=== PATIENT | female | born 1945 | race Hispanic/Latino ===

== ENCOUNTER 2016-06-24 12:56 | Emergency (ER) | payer MEDICARE, BC ==
[2016-06-24 13:05] VITALS: BP 143/67; PULSE 82; RESP 20; TEMP 96.4; O2SAT 95
[2016-06-24] MEDS ORDERED: Sodium Chloride 0.9% 500 ML IV STA (13:20)
--- NOTE | 2016-06-24 13:27 | ED PDOC ---
HPI: General Adult Time Seen by Provider: 06/24/16 13:15 Chief Complaint (Nursing): Dizziness/Lightheaded Chief Complaint (Provider): Dizziness/Lightheaded History Per: Patient History/Exam Limitations: no limitations Onset/Duration Of Symptoms: Days (x2 days) Additional Complaint(s): 70 y/o female with a past medical history of neuropathy, hypercholesterolemia and hypertension who presents to the emergency department with a complaint of experiencing on and off episodes of dizziness (room spinning) whenever she bends or with movement since yesterday night before she went to bed, 2016. Goes away on its own. Patient states she took 2 Aleve pills last night for a tear on her shoulder for the relief of pain, which she believed was going to resolve her dizziness but it did not. Denies shortness of breath, vomiting, nausea, diarrhea, numbness, chest pain, cough, neck pain, or problems with urination. No weakeness, headaches. PMD: Dr. Сергей Aguirre MD Past Medical History Reviewed: Historical Data, Nursing Documentation, Vital Signs Vital Signs: Last Vital Signs Temp 96.4 F L 06/24/16 12:57 Pulse 82 06/24/16 12:57 Resp 20 06/24/16 12:57 BP 143/67 06/24/16 12:57 Pulse Ox 95 06/24/16 14:04 - Medical History PMH: HTN, Hypercholesterolemia - Surgical History Surgical History: Hernia Repair Other surgeries: Mastectomy (left) - Family History Family History: States: Unknown Family Hx - Home Medications Home Medications: Ambulatory Orders Medication Instructions Recorded Atorvastatin [Lipitor] 10 mg PO DAILY 06/24/16 Calcium Carbonate/Vitamin D3 800 mg PO DAILY 06/24/16 [Calcium 600+D Softgel] Gabapentin [Neurontin] 600 mg PO BID 06/24/16 Ibandronate [Boniva] 150 mg IM Q30D 06/24/16 - Allergies Allergies/Adverse Reactions: Allergies Allergy/AdvReac Type Severity Reaction Status Date / Time No Known Allergies Allergy Verified 06/24/16 12:57 Review of Systems ROS Statement: Except As Marked, All Systems Reviewed And Found Negative Cardiovascular: Negative for: Chest Pain Respiratory: Negative for: Cough, Shortness of Breath Gastrointestinal: Negative for: Nausea, Vomiting, Diarrhea Genitourinary Female: Negative for: Dysuria, Frequency, Incontinence, Hematuria Musculoskeletal: Negative for: Neck Pain Neurological: Positive for: Dizziness (Room spinning), Other (Tingling (fingers b/l chronically due to nueropathy)). Negative for: Numbness Physical Exam - Reviewed Nursing Documentation Reviewed: Yes Vital Signs Reviewed: Yes - Physical Exam Appears: Positive for: Non-toxic, No Acute Distress Head Exam: Positive for: ATRAUMATIC, NORMOCEPHALIC Skin: Positive for: Normal Color, Warm, Dry Eye Exam: Positive for: Normal appearance, EOMI, PERRL ENT: Positive for: Normal ENT Inspection Neck: Positive for: Normal, Painless ROM, Supple Cardiovascular/Chest: Positive for: Regular Rate, Rhythm. Negative for: Murmur Respiratory: Positive for: Normal Breath Sounds. Negative for: Accessory Muscle Use, Respiratory Distress Gastrointestinal/Abdominal: Positive for: Normal Exam, Bowel Sounds, Soft. Negative for: Tenderness Back: Positive for: Normal Inspection. Negative for: L CVA Tenderness, R CVA Tenderness Extremity: Positive for: Normal ROM. Negative for: Tenderness, Pedal Edema, Swelling Neurologic/Psych: Positive for: Alert, aquatic habitat biologist II-XII, Oriented. Negative for: Motor/Sensory Deficits, Cerebellar Tests, Aphasia, Facial Droop - Laboratory Results Result Diagrams: 06/24/16 14:01 06/24/16 14:01 Interpretation Of Abn Labs: bun 23 - ECG ECG: Positive for: Interpreted By Me, Viewed By Me ECG Rhythm: Positive for: Normal QRS, Normal ST Segment, Sinus Rhythm O2 Sat by Pulse Oximetry: 95 (RA) Pulse Ox Interpretation: Normal - CT Scan/US head Other Rad Studies (CT/US): Read By Radiologist Other Rad Interpretation: no acute - Progress ED Course And Treament: 1519: Feels much better. AAOx3. No dizziness. Tolerated PO. Ambulating and moving with no issues. Medical Decision Making Medical Decision Making: Time: 13:15 Initial impression: Dizziness Initial plan: --Head w/o contrast (CT) --Electrocardiogram stat --COMP Metabolic Panel --Troponin I Stat --EKG-ED (EDNURTX) STat --CBC w/ differential --Antivert 25 mg PO --Sodium Chloride 500 ml IV 100 mls/hr --Revaluation --Blood Sugar: 122 Time: 13:48 --Head CT FINDINGS: HEMORRHAGE: No intracranial hemorrhage. BRAIN: No mass effect or edema. No significant atrophy. Mild periventricular chronic white matter ischemic change. VENTRICLES: Unremarkable. No hydrocephalus. CALVARIUM: Unremarkable. PARANASAL SINUSES: Unremarkable as visualized. No significant inflammatory changes. MASTOID AIR CELLS: Unremarkable as visualized. No inflammatory changes. OTHER FINDINGS: None. IMPRESSION: No intracranial mass, hemorrhage or evidence acute infarct. Mild chronic microvascular white matter ischemic change. Scribe Attestation: Documented by Charlotte De Jesus, acting as a scribe for Ricki Rey MD. Provider Scribe Attestation: All medical record entries made by the Scribe were at my direction and personally dictated by me. I have reviewed the chart and agree that the record accurately reflects my personal performance of the history, physical exam, medical decision making, and the department course for this patient. I have also personally directed, reviewed, and agree with the discharge instructions and disposition. Disposition - Clinical Impression Clinical Impression: Dizziness - Patient ED Disposition Is Patient to be Admitted: No Counseled Patient/Family Regarding: Studies Performed, Diagnosis, Need For Followup - Disposition Referrals: [facility] [Outside] - 06/26/16 Disposition: Routine/Home Disposition Time: 15:20 Condition: STABLE Additional Instructions: Return if not better in 3 days. Instructions: Dizziness (ED)
--- NOTE | 2016-06-24 13:49 | CT ---
PROCEDURE: CT HEAD WITHOUT CONTRAST. HISTORY: headache COMPARISON: None available. TECHNIQUE: Axial computed tomography images were obtained through the head/brain without intravenous contrast. Radiation dose: Total exam DLP = 861.53 mGy-cm. This CT exam was performed using one or more of the following dose reduction techniques: Automated exposure control, adjustment of the mA and/or kV according to patient size, and/or use of iterative reconstruction technique. FINDINGS: HEMORRHAGE: No intracranial hemorrhage. BRAIN: No mass effect or edema. No significant atrophy. Mild periventricular chronic white matter ischemic change. VENTRICLES: Unremarkable. No hydrocephalus. CALVARIUM: Unremarkable. PARANASAL SINUSES: Unremarkable as visualized. No significant inflammatory changes. MASTOID AIR CELLS: Unremarkable as visualized. No inflammatory changes. OTHER FINDINGS: None. IMPRESSION: No intracranial mass, hemorrhage or evidence acute infarct. Mild chronic microvascular white matter ischemic change.
[2016-06-24 14:16] LABS: ALB/GLOB RATIO 1.3 (1.0-2.1); ALKALINE PHOSPHATASE 85 U/L (38-126); ALT/SGPT 21 U/L (9-52); AST/SGOT 24 U/L (14-36); BILIRUBIN,TOTAL 0.7 mg/dl (0.2-1.3); BLOOD UREA NITROGEN 23 mg/dl (7-17); CALCIUM 9.5 mg/dL (8.4-10.2); CARBON DIOXIDE 30 mmol/L (22-30); CHLORIDE 104 mmol/L (98-107); GFR AFRICAN-AMERICAN > 60; GLUCOSE,RANDOM 97 mg/dL (65-105); SODIUM 145 mmol/l (132-148)
[2016-06-24 14:21] LABS: BASO # 0.1 K/uL (0.0-0.2); BASO % 1.2 % (0.0-2.0); EOS # 0.3 K/uL (0.0-0.7); EOS % 4.5 % (0.0-4.0); HEMATOCRIT 44.4 % (34.0-47.0); LYMPH # 1.9 K/uL (1.0-4.3); LYMPH % 30.2 % (20.0-40.0); MEAN CELL VOLUME 95.8 fl (81.0-99.0); MEAN CORPUSCULAR HEMOGLOBIN 31.8 pg (27.0-31.0); MEAN CORPUSCULAR HGB CONC 33.2 g/dL (33.0-37.0); MEAN PLATELET VOLUME 7.9 fl (7.2-11.7); MONO # 0.6 K/uL (0.0-0.8); NEUT # 3.4 K/uL (1.8-7.0); NEUT % 55.1 % (50.0-75.0); NRBC % 0.1 % (0.0-0.0); RED CELL DISTRIBUTION WIDTH 13.9 % (11.5-14.5); WHITE BLOOD COUNT 6.2 K/uL (4.8-10.8)
--- NOTE | 2016-06-25 09:05 | CARD ---
APPROVED REPORT EKG Measurement Heart [id number] <Conclusion> Sinus bradycardia Otherwise normal ECG
== END 2016-06-24 15:37 | disposition home or self-care (01) ==
LOC: H.ER 12:56
DX: R42 Dizziness and giddiness (principal); E78.00 Pure hypercholesterolemia, unspecified; I10 Essential (primary) hypertension; Z90.12 Acquired absence of left breast and nipple
CPT/HCPCS: 70450; 80053; 82948; 84484; 85025; 93005; 99284; J7040

== ENCOUNTER 2017-06-19 06:44 | Inpatient (IN) | payer MEDICARE, BC ==
[2017-06-15 12:14] VITALS: BMI 32.2
[2017-06-19] MEDS ORDERED: Lidocaine 4% (Laryng-O-Jet) Kit MM ONE (08:49)
[2017-06-19] MEDS ORDERED: Midazolam 2 MG/2 ML VIAL ONE ×2 (08:49→10:36)
[2017-06-19] MEDS ORDERED: Propofol 10 mg/ml Inj (20 ML) ONE ×2 (08:49→10:36)
[2017-06-19] MEDS ORDERED: Rocuronium 10 mg/ml (5 ml) ONE ×2 (08:49→10:36)
[2017-06-19] MEDS ORDERED: Lidocaine Hydrochloride 1% 0 ML ONE (09:39)
[2017-06-19] MEDS ORDERED: Bupivacaine 0.5% Inj(30mL) ONE (09:39)
[2017-06-19] MEDS ORDERED: Thrombin Topical 5,000 Int Units Spray Kit ONE (09:40)
[2017-06-19] MEDS ORDERED: Absorbable Gelatin Sponge Size 100 ONE (09:40)
[2017-06-19] MEDS ORDERED: Bacitracin Ointment 30 GM TUBE ONE (09:40)
[2017-06-19] MEDS ORDERED: EPINEPHrine 1 mg/ml (1:1000) Inj ONE (09:40)
[2017-06-19 09:44] LABS: BASO # 0.1 K/uL (0.0-0.2); BASO % 1.2 % (0.0-2.0); EOS # 0.2 K/uL (0.0-0.7); EOS % 2.4 % (0.0-4.0); HEMOGLOBIN 16.1 g/dL (12.0-16.0); LYMPH # 1.9 K/uL (1.0-4.3); LYMPH % 26.1 % (20.0-40.0); MEAN CELL VOLUME 93.2 fl (81.0-99.0); MEAN CORPUSCULAR HEMOGLOBIN 31.5 pg (27.0-31.0); MEAN CORPUSCULAR HGB CONC 33.8 g/dL (33.0-37.0); MEAN PLATELET VOLUME 8.4 fl (7.2-11.7); MONO # 0.5 K/uL (0.0-0.8); MONO % 6.3 % (0.0-10.0); NEUT # 4.8 K/uL (1.8-7.0); NRBC % 0.1 % (0.0-0.0); RBC 5.1 Mil/uL (3.80-5.20); RED CELL DISTRIBUTION WIDTH 13.7 % (11.5-14.5); WHITE BLOOD COUNT 7.4 K/uL (4.8-10.8)
[2017-06-19] MEDS ORDERED: Succinylcholine 200 mg/10 ml Inj IV ONE (10:36)
[2017-06-19] MEDS ORDERED: Lactated Ringer's 1,000 ML IV ONE ×2 (10:57→12:00)
[2017-06-19] MEDS ORDERED: Morphine 1 mg/ml preservative-free Inj(Duramorph) ONE (12:04)
[2017-06-19] MEDS ORDERED: Sodium Chloride 0.9% Inj (10mL) IV ONE (12:10)
[2017-06-19] MEDS ORDERED: Bupivacaine 0.5% 50 ML IJ ONE (12:10)
[2017-06-19] MEDS ORDERED: EPINEPHrine 1 mg/ml (1:1000) Inj IV ONE (12:10)
[2017-06-19] MEDS ORDERED: Morphine 1 mg/ml preservative-free Inj(Duramorph) IV ONE (12:10)
[2017-06-19] MEDS: Morphine 4 MG/ML VIAL IVP PRN ×2 (13:40→13:55)
--- NOTE | 2017-06-19 13:42 | PCM.SURG1 ---
Surgeon's Initial Post Op Note - Surgeon's Notes Surgeon: Renteta Sunshine MD Housing Case Manager: Preston Hoskins PA-C; Leighann Montana Type of Anesthesia: General Endo Pre-Operative Diagnosis: Left knee Osteoarthritis Operative Findings: see op report Post-Operative Diagnosis: same as pre-op dx Operation Performed: L TKR Specimen/Specimens Removed: left knee bone and soft tissue Estimated Blood Loss: EBL {In ML}: 100 Date of Surgery/Procedure: 06/19/17 Time of Surgery/Procedure: 12:00
[2017-06-19] MEDS ORDERED: Morphine 4 MG/ML VIAL ONE ×2 (13:43→13:59)
--- NOTE | 2017-06-19 14:34 | RAD ---
PROCEDURE: Left Knee Radiographs. HISTORY: Pain. COMPARISON: 05/07/2017. FINDINGS: BONES: There is no acute fracture or bone destruction. Bone alignment is normal. JOINTS: Status post total cemented knee arthroplasty. No acute complications. JOINT EFFUSION: There is a small suprapatellar joint effusion OTHER FINDINGS: Soft tissue emphysema in the periarticular soft tissues and anterior skin guille. IMPRESSION: Status post total cemented right knee arthroplasty, no acute complications.
--- NOTE | 2017-06-19 16:05 | CP.PCM.HP ---
<Nain Dove - Last Filed: 06/19/17 16:07> History of Present Illness - History of Present Illness History of Present Illness: CC: Left total knee replacement HPI: 71 y/o woman w/ pmh of HTN, neuropathy, and HLD presents for left total knee replacement. The patient has no complaints other than some mild pain s/p surgery. The patient denies headaches, chest pain, SOB, abdominal pain, nausea , vomiting, diarrhea, or fever PMD: Dr. Vinson PMH: HTN, HLD, neuropathy meds: see med list PSH: hiatal hernia repair 2007, left mastectomy 2002 Fam: denies SOC: denies smoking, alcohol, and drugs ROS: 12 points assessed and negative unless otherwise reported in HPI Present on Admission - Present on Admission Any Indicators Present on Admission: No History of DVT/PE: No History of Uncontrolled Diabetes: No Urinary Catheter: No Decubitus Ulcer Present: No Review of Systems - Review of Systems All systems: reviewed and no additional remarkable complaints except - Constitutional Constitutional: absent: Chills, Fever - EENT Eyes: absent: Change in Vision - Cardiovascular Cardiovascular: absent: Chest Pain - Respiratory Respiratory: absent: Dyspnea - Gastrointestinal Gastrointestinal: absent: Abdominal Pain, Diarrhea, Nausea, Vomiting - Genitourinary Genitourinary: absent: Dysuria - Integumentary Integumentary: absent: Rash Past Patient History - Past Medical History & Family History Past Medical History?: Yes - Past Social History Smoking Status: Never Smoked - CARDIAC Hx Cardiac Disorders: Yes Hx Hypercholesterolemia: Yes Hx Hypertension: Yes - PULMONARY Hx Respiratory Disorders: No - NEUROLOGICAL Hx Neurological Disorder: No - HEENT Hx HEENT Problems: Yes Other/Comment: high pressure - RENAL Hx Chronic Kidney Disease: No - ENDOCRINE/METABOLIC Hx Endocrine Disorders: No - HEMATOLOGICAL/ONCOLOGICAL Hx Blood Disorders: Yes Hx Cancer: Yes - INTEGUMENTARY Hx Dermatological Problems: No - MUSCULOSKELETAL/RHEUMATOLOGICAL Hx Musculoskeletal Disorders: Yes Hx Arthritis: Yes (spine,knees,neck) - GASTROINTESTINAL Hx Gastrointestinal Disorders: No - GENITOURINARY/GYNECOLOGICAL Hx Genitourinary Disorders: No - PSYCHIATRIC Hx Psychophysiologic Disorder: No Hx Substance Use: No - SURGICAL HISTORY Hx Surgeries: Yes Hx Appendectomy: Yes Hx Herniorrhaphy: Yes (hiatus) Hx Mastectomy: Yes (left) Other/Comment: epidural - ANESTHESIA Hx Anesthesia: Yes Hx Anesthesia Reactions: No Hx Malignant Hyperthermia: No Has any member of the family had a problem w/ anesthesia?: No Meds Allergies/Adverse Reactions: Allergies Allergy/AdvReac Type Severity Reaction Status Date / Time No Known Allergies Allergy Verified 06/19/17 11:53 Physical Exam - Constitutional Appears: No Acute Distress - Head Exam Head Exam: ATRAUMATIC, NORMAL INSPECTION, NORMOCEPHALIC - Eye Exam Eye Exam: Normal appearance - ENT Exam ENT Exam: Mucous Membranes Moist - Neck Exam Neck exam: Positive for: Full Rom. Negative for: Tenderness - Respiratory Exam Respiratory Exam: Clear to Auscultation Bilateral. absent: Accessory Muscle Use , Decreased Breath Sounds, Rales, Rhonchi, Wheezes, Respiratory Distress - Cardiovascular Exam Cardiovascular Exam: REGULAR RHYTHM. absent: Tachycardia - GI/Abdominal Exam GI & Abdominal Exam: Normal Bowel Sounds, Soft. absent: Distended, Tenderness - Extremities Exam Extremities exam: Negative for: calf tenderness, pedal edema, tenderness Additional comments: s/p total left knee replacement, dressed c/d/i - Neurological Exam Neurological exam: Alert, Oriented x3 - Skin Skin Exam: Dry, Intact, Normal Color, Warm Results - Vital Signs Recent Vital Signs: Last Vital Signs Temp 98.6 F 06/19/17 15:40 Pulse 57 L 06/19/17 15:40 Resp 18 06/19/17 15:40 BP 136/71 06/19/17 15:40 Pulse Ox 99 06/19/17 15:40 - Labs Result Diagrams: 06/19/17 09:00 Labs: Laboratory Results - last 24 hr 06/19/17 06/19/17 06/19/17 09:00 09:00 09:30 WBC 7.4 RBC 5.10 Hgb 16.1 H Hct 47.5 H MCV 93.2 D MCH 31.5 H MCHC 33.8 RDW 13.7 Plt Count 196 MPV 8.4 Neut % (Auto) 64.0 Lymph % (Auto) 26.1 [place] % (Auto) 6.3 Eos % (Auto) 2.4 Baso % (Auto) 1.2 Neut # (Auto) 4.8 Lymph # (Auto) 1.9 [place] # (Auto) 0.5 Eos # (Auto) 0.2 Baso # (Auto) 0.1 Blood Type A POSITIVE Blood Type Confirm A POSITIVE Antibody Screen Negative Crossmatch See Detail BBK History Checked No verified bt Assessment & Plan (1) Status post left knee replacement Status: Acute - Assessment and Plan (Free Text) Plan: c/w present management pain management - oxycontin 10 mg PO Q12h - percocet 1 tab PO Q4h prn - toradol 15 mg IM Q8h - Gabapentin 600 mg PO TID <Tom Vinson - Last Filed: 06/21/17 21:26> Results - Vital Signs Recent Vital Signs: Last Vital Signs Temp 99.6 F 06/21/17 09:05 Pulse 76 06/21/17 09:15 Resp 20 06/21/17 09:05 BP 108/61 06/21/17 09:15 Pulse Ox 95 06/21/17 09:15 - Labs Result Diagrams: 06/21/17 05:30 06/21/17 05:30 Labs: Laboratory Results - last 24 hr 06/21/17 06/21/17 05:30 05:30 WBC 9.2 RBC 4.20 Hgb 13.1 Hct 39.5 MCV 94.0 MCH 31.3 H MCHC 33.3 RDW 13.9 Plt Count 143 MPV 8.6 Neut % (Auto) 70.2 Lymph % (Auto) 16.0 L [place] % (Auto) 6.8 Eos % (Auto) 6.6 H Baso % (Auto) 0.4 Neut # (Auto) 6.5 Lymph # (Auto) 1.5 [place] # (Auto) 0.6 Eos # (Auto) 0.6 Baso # (Auto) 0.0 Sodium 138 Potassium 4.1 Chloride 96 L Carbon Dioxide 31 H Anion Gap 15 BUN 13 Creatinine 0.9 Est GFR ( Amer) > 60 Est GFR (Non-Af Amer) > 60 Random Glucose 117 H Calcium 9.3 Assessment & Plan - Assessment and Plan (Free Text) Plan: I was present during evaluation and discussed with Dr Dove re plans of care and tx. Tom Vinson M.D.
[2017-06-19] MEDS ORDERED: CYANOCOBALAMIN NS SCH (16:15)
[2017-06-19] MEDS ORDERED: ceFAZolin 1 GM in Sodium Chloride 0.9% 100 ML IVPB ONE (19:00)
[2017-06-19] MEDS: oxyCODONE 10 mg ER Tab (oxyCONTIN) PO SCH (21:17)
[2017-06-19] MEDS: Oxycodone/Acetaminophen 5/325 mg Tab PO PRN (22:38)
[2017-06-20] MEDS ORDERED: ceFAZolin 1 GM in Sodium Chloride 0.9% 100 ML IVPB ONE (03:00)
[2017-06-20 07:06] LABS: BLOOD UREA NITROGEN 15 mg/dl (7-17); CALCIUM 8.9 mg/dL (8.4-10.2); GFR AFRICAN-AMERICAN > 60; GFR NON-AFRICAN AMERICAN > 60
[2017-06-20 07:07] LABS: BASO % 0.3 % (0.0-2.0); EOS # 0.4 K/uL (0.0-0.7); EOS % 4.4 % (0.0-4.0); HEMOGLOBIN 13.4 g/dL (12.0-16.0); LYMPH # 1.7 K/uL (1.0-4.3); LYMPH % 20.2 % (20.0-40.0); MEAN CELL VOLUME 94.2 fl (81.0-99.0); MEAN PLATELET VOLUME 8.3 fl (7.2-11.7); MONO # 0.7 K/uL (0.0-0.8); MONO % 8.5 % (0.0-10.0); NEUT # 5.5 K/uL (1.8-7.0); NEUT % 66.6 % (50.0-75.0); NRBC % 0.2 % (0.0-0.0); RBC 4.17 Mil/uL (3.80-5.20); WHITE BLOOD COUNT 8.2 K/uL (4.8-10.8)
--- NOTE | 2017-06-20 08:30 | OP ---
PROCEDURE DATE: 06/19/2017 ATTENDING PHYSICIAN: Renetta Sunshine MD WET MACHINE CUTTER: Preston Hoskins PA-C PREOPERATIVE DIAGNOSIS: Left knee osteoarthritis. POSTOPERATIVE DIAGNOSIS: Left knee osteoarthritis. PROCEDURE: Left total knee replacement. IMPLANTS SIZE: [employer] size 2 tibial baseplate, size 2 femur, 11 mm polyethylene insert, and 29 mm patella. ANESTHESIA TYPE: General. ESTIMATED BLOOD LOSS: 100 mL. COMPLICATIONS: None. HISTORY: The patient with prolonged history of left knee pain progressively getting worse despite extensive conservative management, which included activity modification, injections, anti-inflammatory modification and physical therapy. X-rays had revealed advanced arthritis. Patient was indicated for total knee replacement due to continued pain and limited mobility. I had a detailed discussion with the patient in the office explaining the nature of the surgery, alternatives of surgery, risks and benefits, rehabilitation protocol and surgical markings. Risks of surgery include but not limited to continued pain, lack of motion, infection, vascular injury, DVT/PE, nerve injury including peroneal nerve dysfunction, reflex sympathetic dystrophy, compartment syndrome, unforeseen medical and/or anesthesia complications, limb loss, and even . The patient expressed an understanding of the risks and possible benefits of the procedure, and is also aware of the alternatives to surgery. PROCEDURE: On the day of the surgery, the patient was admitted to pre-operative holding area. A laterality sheet was completed confirming the correct operative site. The correct surgical knee was marked in the holding area and informed consent was signed from the patient. Once again, I reviewed the risks and benefits of the surgery with the patient in detail. These risks include but are not limited to continued pain, lack of motion, infection, vascular injury, DVT/PE, nerve injury including peroneal nerve dysfunction, reflex sympathetic dystrophy, symptomatic hardware, need for further procedure and surgeries, instability, iatrogenic fractures, compartment syndrome, unforeseen medical and/or anesthesia complications, limb loss, and even . The patient expressed an understanding of the risks and possible benefits of the procedure, also aware of the alternatives to surgery and signed the informed consent. The patient was transported to the operating room and placed in the supine position, general anesthesia was obtained. Exam under anesthesia revealed . Range of motion from 3 to 120, stable to varus and valgus stress. A padded tourniquet was applied to patient's operative thigh and appropriate prophylactic antibiotics were given. The operative leg was draped and prepped in standard sterile manner. Timeout was completed, confirming patient's left knee to be the correct operative site. Using an Esmarch, the extremity was exsanguinated and tourniquet was inflated to 350 mmHg. The surgical incision markings were made using patella border, tibial tubercle, patella and quadriceps tendon. Using a 10 blade, a midline incision was made. Skin dissection was taken until the prepatellar fascia was identified and the corners of the patellar tendon were marked for proper closure at the end of the procedure. Using a fresh 10 blade, a medial parapatellar arthrotomy was performed. The knee was exposed in the standard manner. The deep MCL was elevated for exposure, medial and lateral menisci were removed, ACL and PCL were also transected. The tibia was subluxed anteriorly. Planned tibial cut was made with power saw, using extra-medullary guide, perpendicular to mechanical axis of the tibia. After the cut was made, the alignment was also checked and was found to be appropriate. Tibial cut surface was measured with trial base plate and it was noted that size 2 tibial baseplate was provide sufficient coverage without overhang. Tibial component was externally rotated and marked. Next, the knee was placed into 90 degrees of flexion. A drill hole was made within the femoral notch anterior to PCL insertion for placement of intramedullary femoral leslie. Intramedullary femoral leslie was inserted within the femoral canal and planned distal femoral cut was made. After the cut, knee was brought into full extension. Spacer blocks were used to check the extension balancing both in full extension and 30 degrees of flexion. It was found that 11 mm trial spacer block allowed full extension with symmetric varus and valgus balancing. Next we proceed with Patella resurfacing. [place] patella width was found to 24 mm. Using the free-hand technique the arthritic patella surface was resected. Patella was sized using the guide and it was noted that 29 mm patella dome button would be appropriate for the patient. Next the size of femoral component was determined using the posterior referencing guide. It was noted that a size 2 femur would be appropriate for this patient without causing any significant notching. A 4 x 1 cutting block was placed and flexion gap balancing was checked. The flexion gap was found to be symmetric to the extension gap. Anterior and posterior condyle, anterior and posterior chamfer cuts were made. Next, appropriate size box cut for femoral component was prepared using the guide. The femoral trial component was impacted onto the distal femur. Appropriate size tibial trial component was also placed on the cut surface of the tibia. Using the drill and punch, keel for tibial implant was prepared. Trial tibial tray was secured onto the tibia using pins. Different size trial polyethylene inserts were secured on to the trial tibial tray to critically assess the following parameters: Full range of motion, extension and flexion gap balancing, mid-flexion stability, anterior and posterior drawer, and patellar tracking. All parameter were found to be satisfactory with 11 mm insert. All the trial components were removed. Implants were opened on the back table. Cement was mixed and we proceed with cement fixation of the implants. Tibial tray, femoral component and patellar dome button were secured with cement. Polyethylene insert was secured onto the tibial tray using locking mechanism. The knee was reduced and brought into full extension. Cement was allowed to harden until final component fixation. Knee was taken through the final range of motion for stability testing, and found to be satisfactory. 60 cc of custom cocktail mixture was injected into posterior capsule, MCL, LCL, quadriceps tendon, and patellar tendon. Wound was copiously irrigated with sterile antibiotic solution using pulse lavage. Arthrotomy was closed using heavy suture and wound was closed in standard manner. Patient was extubated, transferred to stretcher and taken to the recovery room. Post-operative instructions were provided, physical therapy consult was requested along with DVT prophylaxis and appropriate pain medications. During this procedure, I was assisted by Preston Hoskins PA-C, who assisted in positioning the patient on the operating room table as well as transferring the patient from the operating room table to the recovery room stretcher. In addition, Preston Hoskins PA-C assisted me during the actual operative procedure by positioning, protecting critical neurovascular structures, exposure of the joint, and proper positioning of the implants. The presence of Preston Hoskins PA-C as my operative dyer assistant was medically necessary to ensure the utmost safety of the patient in the pre, intra-, and post-operative periods. Renetta Sunshine MD
[2017-06-20] MEDS: oxyCODONE 10 mg ER Tab (oxyCONTIN) PO SCH ×2 (08:38→21:55)
[2017-06-20] MEDS: Calcium-Vit D 500 mg-200 Units Tab UD PO SCH (08:39)
--- NOTE | 2017-06-20 09:01 | CP.PCM.PN ---
Subjective - Date & Time of Evaluation Date of Evaluation: 06/20/17 Time of Evaluation: 08:20 - Subjective Subjective: S/P LTKR POD#1 Pt seen and examined at [facility] with Dr. Sunshine, pt comfortable in bed Pt c/o mild left knee pain, well controlled currently Pt denies SOB, chest pain, N/V/D, numbness/tingling LLE Objective - Vital Signs/Intake and Output Vital Signs (last 24 hours): Temp Pulse Resp BP Pulse Ox 98.2 F 56 L 20 96/41 L 97 06/20/17 08:09 06/20/17 08:09 06/20/17 08:09 06/20/17 08:09 06/20/17 08:09 - Medications Medications: Current Medications Acetaminophen (Tylenol 325mg Tab) 325 mg PO Q4 PRN PRN Reason: pain1-3 Aspirin (Aspirin) 325 mg PO BID [facility] Last Admin: 06/20/17 08:39 Dose: 325 mg Atorvastatin Calcium (Lipitor) 10 mg PO DAILY [facility] Last Admin: 06/20/17 08:39 Dose: 10 mg Calcium/Vitamin D (Oyster Shell Calcium/Vitamin D 500 Mg-200 Iu) 1 tab PO DAILY [facility] Last Admin: 06/20/17 08:39 Dose: 1 tab Celecoxib (Celebrex) 100 mg PO Q12 [facility] Stop: 07/31/17 09:01 Last Admin: 06/20/17 08:39 Dose: 100 mg Docusate Sodium (Colace) 100 mg PO TID [facility] Last Admin: 06/20/17 08:39 Dose: 100 mg Gabapentin (Neurontin) 600 mg PO TID [facility] Last Admin: 06/20/17 08:39 Dose: 600 mg Home Med (Cyanocobalamin (Vitamin B-12) [Nascobal]) 1 each NS ASDIR [facility] Home Med (Propylene Glycol/Peg 400 [Systane Gel Eye Drops]) 10 ml OP ASDIR [facility] Home Med (Timolol [Betimol]) 1 drop BOTHEYES DAILY [facility] Ketorolac Tromethamine (Toradol) 15 mg IM Q8 [facility] Stop: 06/21/17 23:59 Last Admin: 06/20/17 07:19 Dose: 15 mg Morphine Sulfate (Morphine) 2 mg IVP Q15MIN PRN PRN Reason: Pain, moderate (4-7) Last Admin: 06/19/17 13:55 Dose: 2 mg Oxycodone HCl (Oxycontin Extended Release Tab) 10 mg PO Q12 [facility] Stop: 07/03/17 21:01 Last Admin: 06/20/17 08:38 Dose: 10 mg Oxycodone/Acetaminophen (Percocet 5/325 Mg Tab) 1 tab PO Q4 PRN PRN Reason: pain1-3 Stop: 06/22/17 13:49 Last Admin: 06/19/17 22:38 Dose: 1 tab - Labs Labs: 06/20/17 05:30 06/20/17 05:30 - Constitutional Appears: Well, No Acute Distress - Respiratory Exam Respiratory Exam: Clear to Ausculation Bilateral, NORMAL BREATHING PATTERN - Cardiovascular Exam Cardiovascular Exam: REGULAR RHYTHM, RRR - Extremities Exam Additional comments: LLE: Knee dressing C/D/I, pravena dressing functioning well, no active drainage Calves soft and nontender b/l N/V intact distally Normal ROM at ankle Distal pulses wnl No foot drop Assessment and Plan - Assessment and Plan (Free Text) Assessment: 71 yo F s/p LTKR POD#1 Plan: Pain control DVT ppx- aspirin 325mg BID SCD b/l LE Incentive Spirometer PT/OT- WBAT LLE F/U labs
[2017-06-20] MEDS ORDERED: Artificial Tears Opht Soln OU PRN (11:45)
--- NOTE | 2017-06-20 14:41 | CP.PCM.PN ---
<Nain Dove - Last Filed: 06/20/17 14:39> Subjective - Date & Time of Evaluation Date of Evaluation: 06/20/17 Time of Evaluation: 11:10 - Subjective Subjective: Patient seen and examined this at bedside. There are no acute events overnight , NAD. Patient is s/p left total knee replacement POD1. Patient reports pain relieved w/ medication. Patient has no complaints. Patient tolerating out of bed to chair. Objective - Vital Signs/Intake and Output Vital Signs (last 24 hours): Temp Pulse Resp BP Pulse Ox 98.2 F 52 L 20 93/47 L 88 L 06/20/17 09:00 06/20/17 09:30 06/20/17 09:00 06/20/17 09:30 06/20/17 09:30 - Medications Medications: Current Medications Acetaminophen (Tylenol 325mg Tab) 325 mg PO Q4 PRN PRN Reason: pain1-3 Artificial Tears (Artificial Tears) 2 drop OU Q4 PRN PRN Reason: Dry eyes Aspirin (Aspirin) 325 mg PO BID [facility] Last Admin: 06/20/17 08:39 Dose: 325 mg Atorvastatin Calcium (Lipitor) 10 mg PO DAILY [facility] Last Admin: 06/20/17 08:39 Dose: 10 mg Calcium/Vitamin D (Oyster Shell Calcium/Vitamin D 500 Mg-200 Iu) 1 tab PO DAILY [facility] Last Admin: 06/20/17 08:39 Dose: 1 tab Celecoxib (Celebrex) 100 mg PO Q12 [facility] Stop: 07/31/17 09:01 Last Admin: 06/20/17 08:39 Dose: 100 mg Docusate Sodium (Colace) 100 mg PO TID [facility] Last Admin: 06/20/17 12:33 Dose: 100 mg Gabapentin (Neurontin) 600 mg PO TID [facility] Last Admin: 06/20/17 12:33 Dose: 600 mg Ketorolac Tromethamine (Toradol) 15 mg IM Q8 [facility] Stop: 06/21/17 23:59 Last Admin: 06/20/17 11:58 Dose: Not Given Morphine Sulfate (Morphine) 2 mg IVP Q15MIN PRN PRN Reason: Pain, moderate (4-7) Last Admin: 06/19/17 13:55 Dose: 2 mg Oxycodone HCl (Oxycontin Extended Release Tab) 10 mg PO Q12 [facility] Stop: 07/03/17 21:01 Last Admin: 06/20/17 08:38 Dose: 10 mg Oxycodone/Acetaminophen (Percocet 5/325 Mg Tab) 1 tab PO Q4 PRN PRN Reason: pain1-3 Stop: 06/22/17 13:49 Last Admin: 06/19/17 22:38 Dose: 1 tab Timolol Maleate (Timoptic 0.25% Ophth Soln) 1 drop OU DAILY [facility] - Labs Labs: 06/20/17 05:30 06/20/17 05:30 - Constitutional Appears: Non-toxic, No Acute Distress - Head Exam Head Exam: ATRAUMATIC, NORMAL INSPECTION, NORMOCEPHALIC - Eye Exam Eye Exam: Normal appearance - ENT Exam ENT Exam: Mucous Membranes Moist - Neck Exam Neck Exam: Full ROM. absent: Tenderness - Respiratory Exam Respiratory Exam: Clear to Ausculation Bilateral. absent: Accessory Muscle Use , Decreased Breath Sounds, Rales, Rhonchi, Wheezes, Respiratory Distress - Cardiovascular Exam Cardiovascular Exam: REGULAR RHYTHM. absent: Tachycardia - GI/Abdominal Exam GI & Abdominal Exam: Soft, Normal Bowel Sounds. absent: Distended, Tenderness - Extremities Exam Extremities Exam: absent: Calf Tenderness, Pedal Edema, Tenderness Additional comments: left knee dressing and wrapped w/ LI wrap, c/d/i - Neurological Exam Neurological Exam: Alert, Awake, Oriented x3 - Skin Skin Exam: Dry, Intact, Normal Color, Warm Assessment and Plan (1) Status post left knee replacement Status: Acute - Assessment and Plan (Free Text) Assessment: c/w present management pain management - oxycontin 10 mg PO Q12h - percocet 1 tab PO Q4h prn - toradol 15 mg IM Q8h - Gabapentin 600 mg PO TID Incentive Spirometer PT/OT- WBAT LLE F/U labs DVT ppx: aspirin 325 mg PO BID, SCD b/l LE monitor for acute changes <Tom Vinson - Last Filed: 06/21/17 21:26> Objective - Vital Signs/Intake and Output Vital Signs (last 24 hours): Temp Pulse Resp BP Pulse Ox 99.6 F 76 20 108/61 95 06/21/17 09:05 06/21/17 09:15 06/21/17 09:05 06/21/17 09:15 06/21/17 09:15 - Labs Labs: 06/21/17 05:30 06/21/17 05:30 Assessment and Plan - Assessment and Plan (Free Text) Plan: I was present during evaluation and discussed with Dr Petty ocnnell plans of care and tx. Tom Vinson M.d.
[2017-06-20] MEDS: Timolol 0.25% Ophth SOLN OU SCH (14:59)
[2017-06-20] MEDS: Oxycodone/Acetaminophen 5/325 mg Tab PO PRN (14:59)
[2017-06-20 23:59] VITALS: RESP 20
[2017-06-21] MEDS: Oxycodone/Acetaminophen 5/325 mg Tab PO PRN (02:13)
[2017-06-21 07:33] LABS: BASO % 0.4 % (0.0-2.0); EOS # 0.6 K/uL (0.0-0.7); EOS % 6.6 % (0.0-4.0); HEMOGLOBIN 13.1 g/dL (12.0-16.0); LYMPH # 1.5 K/uL (1.0-4.3); MEAN CORPUSCULAR HEMOGLOBIN 31.3 pg (27.0-31.0); MEAN CORPUSCULAR HGB CONC 33.3 g/dL (33.0-37.0); MEAN PLATELET VOLUME 8.6 fl (7.2-11.7); MONO # 0.6 K/uL (0.0-0.8); MONO % 6.8 % (0.0-10.0); NEUT # 6.5 K/uL (1.8-7.0); NEUT % 70.2 % (50.0-75.0); NRBC % 0.1 % (0.0-0.0); RBC 4.2 Mil/uL (3.80-5.20); RED CELL DISTRIBUTION WIDTH 13.9 % (11.5-14.5); WHITE BLOOD COUNT 9.2 K/uL (4.8-10.8)
[2017-06-21 07:56] LABS: BLOOD UREA NITROGEN 13 mg/dl (7-17); CALCIUM 9.3 mg/dL (8.4-10.2); GFR AFRICAN-AMERICAN > 60; GFR NON-AFRICAN AMERICAN > 60
[2017-06-21 09:06] VITALS: TEMP 99.6
--- NOTE | 2017-06-21 09:41 | CP.PCM.PN ---
<Nain Dove - Last Filed: 06/21/17 14:53> Subjective - Date & Time of Evaluation Date of Evaluation: 06/21/17 Time of Evaluation: 08:40 - Subjective Subjective: Patient seen and examined this at bedside. There are no acute events overnight , NAD. Patient is s/p left total knee replacement POD2. Patient reports pain relieved w/ medication. Patient has no complaints. Patient tolerating out of bed to chair. Objective - Vital Signs/Intake and Output Vital Signs (last 24 hours): Temp Pulse Resp BP Pulse Ox 99.6 F 83 20 105/69 99 06/21/17 09:05 06/21/17 09:05 06/21/17 09:05 06/21/17 09:05 06/21/17 09:05 - Medications Medications: Current Medications Acetaminophen (Tylenol 325mg Tab) 325 mg PO Q4 PRN PRN Reason: pain1-3 Artificial Tears (Artificial Tears) 2 drop OU Q4 PRN PRN Reason: Dry eyes Aspirin (Aspirin) 325 mg PO BID [facility] Last Admin: 06/20/17 17:42 Dose: 325 mg Atorvastatin Calcium (Lipitor) 10 mg PO DAILY [facility] Last Admin: 06/20/17 08:39 Dose: 10 mg Calcium/Vitamin D (Oyster Shell Calcium/Vitamin D 500 Mg-200 Iu) 1 tab PO DAILY [facility] Last Admin: 06/20/17 08:39 Dose: 1 tab Celecoxib (Celebrex) 100 mg PO Q12 [facility] Stop: 07/31/17 09:01 Last Admin: 06/20/17 21:55 Dose: 100 mg Docusate Sodium (Colace) 100 mg PO TID [facility] Last Admin: 06/20/17 17:42 Dose: 100 mg Gabapentin (Neurontin) 600 mg PO TID [facility] Last Admin: 06/20/17 17:42 Dose: 600 mg Ketorolac Tromethamine (Toradol) 15 mg IM Q8 [facility] Stop: 06/21/17 23:59 Last Admin: 06/21/17 01:11 Dose: Not Given Morphine Sulfate (Morphine) 2 mg IVP Q15MIN PRN PRN Reason: Pain, moderate (4-7) Last Admin: 06/19/17 13:55 Dose: 2 mg Oxycodone HCl (Oxycontin Extended Release Tab) 10 mg PO Q12 [facility] Stop: 07/03/17 21:01 Last Admin: 06/20/17 21:55 Dose: 10 mg Oxycodone/Acetaminophen (Percocet 5/325 Mg Tab) 1 tab PO Q4 PRN PRN Reason: pain1-3 Stop: 06/22/17 13:49 Last Admin: 06/21/17 02:13 Dose: 1 tab Timolol Maleate (Timoptic 0.25% Ophth Soln) 1 drop OU DAILY [facility] Last Admin: 06/20/17 14:59 Dose: 1 drop - Labs Labs: 06/21/17 05:30 06/21/17 05:30 - Constitutional Appears: Non-toxic, No Acute Distress - Head Exam Head Exam: ATRAUMATIC, NORMAL INSPECTION, NORMOCEPHALIC - Eye Exam Eye Exam: Normal appearance - ENT Exam ENT Exam: Mucous Membranes Moist - Neck Exam Neck Exam: Full ROM. absent: Tenderness - Respiratory Exam Respiratory Exam: Clear to Ausculation Bilateral. absent: Accessory Muscle Use , Decreased Breath Sounds, Rales, Rhonchi, Wheezes, Respiratory Distress - Cardiovascular Exam Cardiovascular Exam: REGULAR RHYTHM. absent: Tachycardia - GI/Abdominal Exam GI & Abdominal Exam: Soft, Normal Bowel Sounds. absent: Distended, Tenderness - Extremities Exam Extremities Exam: absent: Calf Tenderness, Pedal Edema, Tenderness Additional comments: left knee dressing and wrapped w/ LI wrap, c/d/i - Neurological Exam Neurological Exam: Alert, Awake, Oriented x3 - Skin Skin Exam: Dry, Intact, Normal Color, Warm Assessment and Plan (1) Status post left knee replacement Status: Acute - Assessment and Plan (Free Text) Plan: c/w present management pain management - oxycontin 10 mg PO Q12h - percocet 1 tab PO Q4h prn - toradol 15 mg IM Q8h - Gabapentin 600 mg PO TID Incentive Spirometer PT/OT- WBAT LLE F/U labs DVT ppx: aspirin 325 mg PO BID, SCD b/l LE monitor for acute changes patient awaiting discharge to TCU <Tom Vinson - Last Filed: 06/21/17 21:27> Objective - Vital Signs/Intake and Output Vital Signs (last 24 hours): Temp Pulse Resp BP Pulse Ox 99.6 F 76 20 108/61 95 06/21/17 09:05 06/21/17 09:15 06/21/17 09:05 06/21/17 09:15 06/21/17 09:15 - Labs Labs: 06/21/17 05:30 06/21/17 05:30 Assessment and Plan - Assessment and Plan (Free Text) Plan: I was present during evaluation and discussed with Dr Petty connell plans of care and tx Tom Vinson M.D.
[2017-06-21] MEDS: Timolol 0.25% Ophth SOLN OU SCH (10:03)
[2017-06-21] MEDS: Calcium-Vit D 500 mg-200 Units Tab UD PO SCH (10:04)
[2017-06-21] MEDS: oxyCODONE 10 mg ER Tab (oxyCONTIN) PO SCH (10:10)
[2017-06-21 13:59] VITALS: BP 108/61; PULSE 76; O2SAT 95
--- NOTE | 2017-06-21 21:49 | CP.PCM.DIS ---
Provider - Provider Date of Admission: 06/19/17 13:42 Attending physician: Tom Vinson MD Primary care physician: Tom Vinson MD Time Spent in preparation of Discharge (in minutes): 30 Hospital Course - Lab Results Lab Results: Most Recent Lab Values WBC 9.2 K/uL (4.8-10.8) 06/21/17 05:30 RBC 4.20 Mil/uL (3.80-5.20) 06/21/17 05:30 Hgb 13.1 g/dL (12.0-16.0) 06/21/17 05:30 Hct 39.5 % (34.0-47.0) 06/21/17 05:30 MCV 94.0 fl (81.0-99.0) 06/21/17 05:30 MCH 31.3 pg (27.0-31.0) H 06/21/17 05:30 MCHC 33.3 g/dL (33.0-37.0) 06/21/17 05:30 RDW 13.9 % (11.5-14.5) 06/21/17 05:30 Plt Count 143 K/uL (130-400) 06/21/17 05:30 MPV 8.6 fl (7.2-11.7) 06/21/17 05:30 Neut % (Auto) 70.2 % (50.0-75.0) 06/21/17 05:30 Lymph % (Auto) 16.0 % (20.0-40.0) L 06/21/17 05:30 [place] % (Auto) 6.8 % (0.0-10.0) 06/21/17 05:30 Eos % (Auto) 6.6 % (0.0-4.0) H 06/21/17 05:30 Baso % (Auto) 0.4 % (0.0-2.0) 06/21/17 05:30 Neut # (Auto) 6.5 K/uL (1.8-7.0) 06/21/17 05:30 Lymph # (Auto) 1.5 K/uL (1.0-4.3) 06/21/17 05:30 [place] # (Auto) 0.6 K/uL (0.0-0.8) 06/21/17 05:30 Eos # (Auto) 0.6 K/uL (0.0-0.7) 06/21/17 05:30 Baso # (Auto) 0.0 K/uL (0.0-0.2) 06/21/17 05:30 Sodium 138 mmol/l (132-148) 06/21/17 05:30 Potassium 4.1 MMOL/L (3.6-5.0) 06/21/17 05:30 Chloride 96 mmol/L (98-107) L 06/21/17 05:30 Carbon Dioxide 31 mmol/L (22-30) H 06/21/17 05:30 Anion Gap 15 (10-20) 06/21/17 05:30 BUN 13 mg/dl (7-17) 06/21/17 05:30 Creatinine 0.9 mg/dl (0.7-1.2) 06/21/17 05:30 Est GFR ( Amer) > 60 06/21/17 05:30 Est GFR (Non-Af Amer) > 60 06/21/17 05:30 Random Glucose 117 mg/dL (65-105) H 06/21/17 05:30 Calcium 9.3 mg/dL (8.4-10.2) 06/21/17 05:30 Blood Type A POSITIVE 06/19/17 09:00 Blood Type Confirm A POSITIVE 06/19/17 09:30 Antibody Screen Negative 06/19/17 09:00 Crossmatch See Detail 06/19/17 09:00 BBK History Checked No verified bt 06/19/17 09:00 - Hospital Course Hospital Course: This is a 71 y/o female admitted for left total knee replacement for severe OA. She has a hx of HTN Post op period was unremarkable and she was started on Phy stherapy. She was discharged to subacute rehab for further PT. Discharge Exam - Head Exam Head Exam: ATRAUMATIC, NORMAL INSPECTION, NORMOCEPHALIC - Eye Exam Eye Exam: Normal appearance - Respiratory Exam Respiratory Exam: Clear to PA & Lateral - Cardiovascular Exam Cardiovascular Exam: REGULAR RHYTHM - GI/Abdominal Exam GI & Abdominal Exam: Normal Bowel Sounds - Neurological Exam Neurological exam: CN II-XII Intact, Oriented x3 Discharge Plan - Follow Up Plan Condition: GOOD Disposition: REHAB FACILITY/REHAB UNIT Instructions: Total Knee Replacement Additional Instructions: pt. cleared for discharge to TCU today by and cont. PT/OT, pain control I was present during evaluation and discussed with Dr Dove re plans of care and t Tom Vinson M.D. Referrals: Renetta Sunshine MD [Staff Provider] - Tom Vinson MD [Primary Care Provider] -
--- NOTE | 2017-06-22 18:26 | CARD ---
APPROVED REPORT EKG Measurement Heart [id number] <Conclusion> Sinus rhythm with frequent premature ventricular complexes Nonspecific T wave abnormality Abnormal ECG
== END 2017-06-21 14:07 | DRG 470 ==
LOC: H.OPSURG 06:44 → H.MEDSURG1 13:42
PROVIDERS: ADMIT Family Medicine; ATTEND Family Medicine
PROC: 0SRD069 Replacement of Left Knee Joint with Oxidized Zirconium on Polyethylene Synthetic Substitute, Cemented, Open Approach (ICD-10-PCS; principal; 2017-06-19 11:15)
DX: M17.12 Unilateral primary osteoarthritis, left knee (principal); I10 Essential (primary) hypertension; E78.5 Hyperlipidemia, unspecified; E78.00 Pure hypercholesterolemia, unspecified; G62.9 Polyneuropathy, unspecified; Z79.82 Long term (current) use of aspirin; Z90.12 Acquired absence of left breast and nipple; Z90.49 Acquired absence of other specified parts of digestive tract

== ENCOUNTER 2017-06-21 12:15 | Inpatient (IN) | payer OTHER, BC ==
[2017-06-21 14:27] VITALS: BMI 34.1
[2017-06-21 16:36] VITALS: RESP 20
[2017-06-21] MEDS ORDERED: Tuberculin 5 Units/0.1 ml Inj ID ONE (16:36)
[2017-06-21] MEDS: oxyCODONE 10 mg ER Tab (oxyCONTIN) PO SCH (20:18)
[2017-06-22] MEDS: Oxycodone/Acetaminophen 5/325 mg Tab PO PRN (06:29)
--- NOTE | 2017-06-22 08:22 | CP.PCM.HP ---
<Nain Dove - Last Filed: 06/22/17 13:48> History of Present Illness - History of Present Illness History of Present Illness: HPI: 71 y/o woman w/ pmh of HTN, neuropathy, and HLD is admitted to TCU for continuation of physical therapy s/p left total knee replacement. The patient is POD3 and has no complaints other than some mild pain s/p surgery. The patient denies headaches, chest pain, SOB, abdominal pain, nausea, vomiting, diarrhea, or fever. Present on Admission - Present on Admission Any Indicators Present on Admission: No History of DVT/PE: No History of Uncontrolled Diabetes: No Urinary Catheter: No Decubitus Ulcer Present: No Review of Systems - Review of Systems All systems: reviewed and no additional remarkable complaints except - Constitutional Constitutional: absent: Chills, Fever - EENT Eyes: absent: Change in Vision - Cardiovascular Cardiovascular: absent: Chest Pain - Respiratory Respiratory: absent: Dyspnea - Gastrointestinal Gastrointestinal: absent: Abdominal Pain, Diarrhea, Nausea, Vomiting - Genitourinary Genitourinary: absent: Dysuria - Integumentary Integumentary: absent: Rash - Neurological Neurological: absent: Dizziness, Headaches Past Patient History - Past Medical History & Family History Past Medical History?: Yes - Past Social History Smoking Status: Former Smoker - CARDIAC Hx Hypertension: Yes - PULMONARY Hx Respiratory Disorders: No - NEUROLOGICAL Hx Neurological Disorder: No - HEENT Hx HEENT Problems: Yes Other/Comment: high pressure - RENAL Hx Chronic Kidney Disease: No - ENDOCRINE/METABOLIC Hx Endocrine Disorders: No - HEMATOLOGICAL/ONCOLOGICAL Hx Blood Disorders: Yes Hx AIDS: No Hx Cancer: Yes Hx Human Immunodeficiency Virus (HIV): No - INTEGUMENTARY Hx Dermatological Problems: No - MUSCULOSKELETAL/RHEUMATOLOGICAL Hx Musculoskeletal Disorders: Yes Hx Arthritis: Yes (spine,knees,neck) Hx Falls: Yes (fell in february) - GASTROINTESTINAL Hx Gastrointestinal Disorders: No - GENITOURINARY/GYNECOLOGICAL Hx Genitourinary Disorders: No - PSYCHIATRIC Hx Psychophysiologic Disorder: No Hx Substance Use: No - SURGICAL HISTORY Hx Surgeries: Yes Hx Appendectomy: Yes Hx Herniorrhaphy: Yes (hiatus) Hx Mastectomy: Yes (left) Other/Comment: epidural - ANESTHESIA Hx Anesthesia: Yes Hx Anesthesia Reactions: No Hx Malignant Hyperthermia: No Meds Allergies/Adverse Reactions: Allergies Allergy/AdvReac Type Severity Reaction Status Date / Time No Known Allergies Allergy Verified 06/19/17 11:53 Physical Exam - Constitutional Appears: Non-toxic, No Acute Distress - Head Exam Head Exam: ATRAUMATIC, NORMAL INSPECTION, NORMOCEPHALIC - Eye Exam Eye Exam: Normal appearance - ENT Exam ENT Exam: Mucous Membranes Moist - Neck Exam Neck exam: Positive for: Full Rom. Negative for: Tenderness - Respiratory Exam Respiratory Exam: Clear to Auscultation Bilateral. absent: Accessory Muscle Use , Decreased Breath Sounds, Rales, Rhonchi, Wheezes, Respiratory Distress - Cardiovascular Exam Cardiovascular Exam: REGULAR RHYTHM. absent: Tachycardia - GI/Abdominal Exam GI & Abdominal Exam: Normal Bowel Sounds, Soft. absent: Distended, Tenderness - Extremities Exam Extremities exam: Negative for: calf tenderness, pedal edema Additional comments: left knee dressing and wrapped w/ LI wrap, c/d/i - Neurological Exam Neurological exam: Alert, Oriented x3 - Skin Skin Exam: Dry, Intact, Normal Color, Warm Results - Vital Signs Recent Vital Signs: Last Vital Signs Temp 98.1 F 06/22/17 08:06 Pulse 76 06/22/17 08:06 Resp 20 06/22/17 08:06 BP 98/59 L 06/22/17 08:06 Pulse Ox 100 06/22/17 08:06 Assessment & Plan (1) Status post left knee replacement Status: Acute - Assessment and Plan (Free Text) Plan: c/w present management, POD3 pain management - oxycontin 10 mg PO Q12h - percocet 1 tab PO Q4h prn - Gabapentin 600 mg PO TID Incentive Spirometer c/w PT/OT PT/OT- WBAT LLE F/U labs DVT ppx: aspirin 325 mg PO BID, SCD b/l LE monitor for acute changes <Tom Vinson - Last Filed: 06/23/17 23:30> Results - Vital Signs Recent Vital Signs: Last Vital Signs Temp 98.1 F 06/23/17 22:48 Pulse 91 H 06/23/17 22:48 Resp 20 06/23/17 22:48 BP 128/65 06/23/17 22:48 Pulse Ox 92 L 06/23/17 22:48 Assessment & Plan - Assessment and Plan (Free Text) Plan: I was present during evaluation and discussed with Dr Dove re plans of care and tx. Tom Vinson M.D.
[2017-06-22] MEDS ORDERED: Calcium-Vit D 500 mg-200 Units Tab UD PO SCH (09:00)
[2017-06-22] MEDS ORDERED: TIMOLOL BOTHEYES SCH (09:00)
[2017-06-22] MEDS: oxyCODONE 10 mg ER Tab (oxyCONTIN) PO SCH ×2 (09:11→20:39)
--- NOTE | 2017-06-22 12:34 | CP.PCM.PN ---
Subjective - Date & Time of Evaluation Date of Evaluation: 06/22/17 Time of Evaluation: 12:25 - Subjective Subjective: S/P LTKR POD#3 Pt seen and examined sitting in chair, comfortable, in NAD Pt denies any current left knee pain, currently well controlled with pain meds Pt denies SOB, chest pain, N/V/D, numbness/tingling to LLE Objective - Vital Signs/Intake and Output Vital Signs (last 24 hours): Temp Pulse Resp BP Pulse Ox 98.1 F 76 20 98/59 L 100 06/22/17 08:06 06/22/17 08:06 06/22/17 08:06 06/22/17 08:06 06/22/17 08:06 - Medications Medications: Current Medications Acetaminophen (Tylenol 325mg Tab) 325 mg PO Q4 PRN PRN Reason: pain1-3 Aspirin (Aspirin) 325 mg PO BID [facility] Last Admin: 06/22/17 09:09 Dose: 325 mg Atorvastatin Calcium (Lipitor) 10 mg PO DAILY [facility] Last Admin: 06/22/17 09:08 Dose: 10 mg Calcium/Vitamin D (Oyster Shell Calcium/Vitamin D 500 Mg-200 Iu) 1 tab PO DAILY [facility] Celecoxib (Celebrex) 100 mg PO Q12 [facility] Last Admin: 06/22/17 09:09 Dose: 100 mg Docusate Sodium (Colace) 100 mg PO TID [facility] Last Admin: 06/22/17 09:08 Dose: 100 mg Gabapentin (Neurontin) 600 mg PO TID [facility] Last Admin: 06/22/17 09:09 Dose: 600 mg Home Med (Timolol [Betimol]) 1 drop BOTHEYES DAILY [facility] Oxycodone HCl (Oxycontin Extended Release Tab) 10 mg PO Q12 [facility] Stop: 06/24/17 21:01 Last Admin: 06/22/17 09:11 Dose: 10 mg Oxycodone/Acetaminophen (Percocet 5/325 Mg Tab) 1 tab PO Q4 PRN PRN Reason: pain, 4-7 Stop: 06/24/17 15:17 Last Admin: 06/22/17 06:29 Dose: 1 tab - Constitutional Appears: Well, No Acute Distress - Respiratory Exam Respiratory Exam: Clear to Ausculation Bilateral, NORMAL BREATHING PATTERN - Cardiovascular Exam Cardiovascular Exam: REGULAR RHYTHM, RRR - Extremities Exam Additional comments: LLE: Knee dressing C/D/I, pravena in place and functioning well, no active drainage Calves soft and nontender b/l N/V itnact distally Normal ROM at ankle Distal pulses wnl Assessment and Plan - Assessment and Plan (Free Text) Assessment: 71 yo F s/p LTKR POD#3 Plan: Pain control DVT ppx- ccontinue aspirin BID, SCD b/l LE PT/OT- WBAT LLE Continue current management
--- NOTE | 2017-06-22 12:40 | CP.PCM.CON ---
History of Present Illness - History of Present Illness History of Present Illness: 71 year old female with left total knee replacement with pmh of HTN, neuropathy Review of Systems - Musculoskeletal Musculoskeletal: Abnormal Gait, Muscle Weakness Past Patient History - Past Medical History & Family History Past Medical History?: Yes - Past Social History Smoking Status: Former Smoker - CARDIAC Hx Hypertension: Yes - PULMONARY Hx Respiratory Disorders: No - NEUROLOGICAL Hx Neurological Disorder: No - HEENT Hx HEENT Problems: Yes Other/Comment: high pressure - RENAL Hx Chronic Kidney Disease: No - ENDOCRINE/METABOLIC Hx Endocrine Disorders: No - HEMATOLOGICAL/ONCOLOGICAL Hx Blood Disorders: Yes Hx AIDS: No Hx Cancer: Yes Hx Human Immunodeficiency Virus (HIV): No - INTEGUMENTARY Hx Dermatological Problems: No - MUSCULOSKELETAL/RHEUMATOLOGICAL Hx Musculoskeletal Disorders: Yes Hx Arthritis: Yes (spine,knees,neck) Hx Falls: Yes (fell in february) - GASTROINTESTINAL Hx Gastrointestinal Disorders: No - GENITOURINARY/GYNECOLOGICAL Hx Genitourinary Disorders: No - PSYCHIATRIC Hx Psychophysiologic Disorder: No Hx Substance Use: No - SURGICAL HISTORY Hx Surgeries: Yes Hx Appendectomy: Yes Hx Herniorrhaphy: Yes (hiatus) Hx Mastectomy: Yes (left) Other/Comment: epidural - ANESTHESIA Hx Anesthesia: Yes Hx Anesthesia Reactions: No Hx Malignant Hyperthermia: No Meds Allergies/Adverse Reactions: Allergies Allergy/AdvReac Type Severity Reaction Status Date / Time No Known Allergies Allergy Verified 06/19/17 11:53 - Medications Medications: Current Medications Acetaminophen (Tylenol 325mg Tab) 325 mg PO Q4 PRN PRN Reason: pain1-3 Aspirin (Aspirin) 325 mg PO BID [facility] Last Admin: 06/22/17 09:09 Dose: 325 mg Atorvastatin Calcium (Lipitor) 10 mg PO DAILY [facility] Last Admin: 06/22/17 09:08 Dose: 10 mg Calcium/Vitamin D (Oyster Shell Calcium/Vitamin D 500 Mg-200 Iu) 1 tab PO DAILY [facility] Celecoxib (Celebrex) 100 mg PO Q12 [facility] Last Admin: 06/22/17 09:09 Dose: 100 mg Docusate Sodium (Colace) 100 mg PO TID [facility] Last Admin: 06/22/17 09:08 Dose: 100 mg Gabapentin (Neurontin) 600 mg PO TID [facility] Last Admin: 06/22/17 09:09 Dose: 600 mg Home Med (Timolol [Betimol]) 1 drop BOTHEYES DAILY [facility] Oxycodone HCl (Oxycontin Extended Release Tab) 10 mg PO Q12 [facility] Stop: 06/24/17 21:01 Last Admin: 06/22/17 09:11 Dose: 10 mg Oxycodone/Acetaminophen (Percocet 5/325 Mg Tab) 1 tab PO Q4 PRN PRN Reason: pain, 4-7 Stop: 06/24/17 15:17 Last Admin: 06/22/17 06:29 Dose: 1 tab Physical Exam - Head Exam Head Exam: ATRAUMATIC, NORMAL INSPECTION, NORMOCEPHALIC - Eye Exam Eye Exam: EOMI, Normal appearance, PERRL Pupil Exam: NORMAL ACCOMODATION - ENT Exam ENT Exam: Mucous Membranes Moist, Normal Exam - Neck Exam Neck exam: Positive for: Normal Inspection - Respiratory Exam Respiratory Exam: Clear to Auscultation Bilateral, NORMAL BREATHING PATTERN - Cardiovascular Exam Cardiovascular Exam: REGULAR RHYTHM - GI/Abdominal Exam GI & Abdominal Exam: Normal Bowel Sounds - Rectal Exam Rectal Exam: NORMAL INSPECTION - Exam External exam: NORMAL EXTERNAL EXAM - Extremities Exam Extremities exam: Positive for: normal inspection - Back Exam Back exam: NORMAL INSPECTION Additional comments: left leg weakness with knee healing - Neurological Exam Neurological exam: Alert, CN II-XII Intact - Psychiatric Exam Psychiatric exam: Normal Affect, Normal Mood - Skin Skin Exam: Dry, Normal Color Results - Vital Signs Recent Vital Signs: Last Vital Signs Temp 98.1 F 06/22/17 08:06 Pulse 76 06/22/17 08:06 Resp 20 06/22/17 08:06 BP 98/59 L 06/22/17 08:06 Pulse Ox 100 06/22/17 08:06 Assessment & Plan (1) Dizziness Status: Acute (2) Status post left knee replacement Assessment and Plan: quadriceps strenghtneing, transfers and gait training physical, occupational therapy program Status: Acute
[2017-06-22] MEDS: Calcium-Vit D 500 mg-200 Units Tab UD PO SCH (12:41)
--- NOTE | 2017-06-22 12:45 | CP.PCM.PN ---
Subjective - Date & Time of Evaluation Date of Evaluation: 06/22/17 Time of Evaluation: 10:15 - Subjective Subjective: mild knee pain Objective - Vital Signs/Intake and Output Vital Signs (last 24 hours): Temp Pulse Resp BP Pulse Ox 98.1 F 76 20 98/59 L 100 06/22/17 08:06 06/22/17 08:06 06/22/17 08:06 06/22/17 08:06 06/22/17 08:06 - Medications Medications: Current Medications Acetaminophen (Tylenol 325mg Tab) 325 mg PO Q4 PRN PRN Reason: pain1-3 Aspirin (Aspirin) 325 mg PO BID [facility] Last Admin: 06/22/17 09:09 Dose: 325 mg Atorvastatin Calcium (Lipitor) 10 mg PO DAILY [facility] Last Admin: 06/22/17 09:08 Dose: 10 mg Calcium/Vitamin D (Oyster Shell Calcium/Vitamin D 500 Mg-200 Iu) 1 tab PO DAILY [facility] Last Admin: 06/22/17 12:41 Dose: 1 tab Celecoxib (Celebrex) 100 mg PO Q12 [facility] Last Admin: 06/22/17 09:09 Dose: 100 mg Docusate Sodium (Colace) 100 mg PO TID [facility] Last Admin: 06/22/17 12:41 Dose: 100 mg Gabapentin (Neurontin) 600 mg PO TID [facility] Last Admin: 06/22/17 12:42 Dose: 600 mg Home Med (Timolol [Betimol]) 1 drop BOTHEYES DAILY [facility] Oxycodone HCl (Oxycontin Extended Release Tab) 10 mg PO Q12 [facility] Stop: 06/24/17 21:01 Last Admin: 06/22/17 09:11 Dose: 10 mg Oxycodone/Acetaminophen (Percocet 5/325 Mg Tab) 1 tab PO Q4 PRN PRN Reason: pain, 4-7 Stop: 06/24/17 15:17 Last Admin: 06/22/17 06:29 Dose: 1 tab - Head Exam Head Exam: ATRAUMATIC, NORMAL INSPECTION, NORMOCEPHALIC - Eye Exam Eye Exam: EOMI, Normal appearance, PERRL Pupil Exam: NORMAL ACCOMODATION - ENT Exam ENT Exam: Mucous Membranes Moist, Normal Exam - Neck Exam Neck Exam: Normal Inspection - Respiratory Exam Respiratory Exam: NORMAL BREATHING PATTERN - Cardiovascular Exam Cardiovascular Exam: REGULAR RHYTHM - GI/Abdominal Exam GI & Abdominal Exam: Soft, Normal Bowel Sounds - Rectal Exam Rectal Exam: NORMAL INSPECTION - Exam External exam: NORMAL EXTERNAL EXAM - Extremities Exam Extremities Exam: Full ROM, Normal Capillary Refill - Back Exam Back Exam: NORMAL INSPECTION - Neurological Exam Neurological Exam: Alert, Awake, CN II-XII Intact Neuro motor strength exam: Left Upper Extremity: 4, Right Upper Extremity: 4, Left Lower Extremity: 3, Right Lower Extremity: 4 - Psychiatric Exam Psychiatric exam: Normal Affect, Normal Mood - Skin Skin Exam: Dry, Intact Assessment and Plan (1) Dizziness Status: Acute (2) Status post left knee replacement Assessment & Plan: plan for physical, occupational, therapy for range of motion, strenghtening, transfres and gait training Status: Acute
[2017-06-23] MEDS: Calcium-Vit D 500 mg-200 Units Tab UD PO SCH (08:13)
[2017-06-23] MEDS: Timolol 0.25% Ophth SOLN OU SCH (08:14)
[2017-06-23] MEDS: oxyCODONE 10 mg ER Tab (oxyCONTIN) PO SCH ×2 (08:17→21:02)
--- NOTE | 2017-06-23 23:32 | CP.PCM.PN ---
Subjective - Date & Time of Evaluation Date of Evaluation: 06/23/17 Time of Evaluation: 16:30 - Subjective Subjective: Patient remains stable. Has no chest pain or SOB. Doing well with PT. Objective - Vital Signs/Intake and Output Vital Signs (last 24 hours): Temp Pulse Resp BP Pulse Ox 98.1 F 91 H 20 128/65 92 L 06/23/17 22:48 06/23/17 22:48 06/23/17 22:48 06/23/17 22:48 06/23/17 22:48 - Medications Medications: Current Medications Acetaminophen (Tylenol 325mg Tab) 325 mg PO Q4 PRN PRN Reason: pain1-3 Aspirin (Aspirin) 325 mg PO BID [facility] Last Admin: 06/23/17 17:19 Dose: 325 mg Atorvastatin Calcium (Lipitor) 10 mg PO DAILY [facility] Last Admin: 06/23/17 08:12 Dose: 10 mg Calcium/Vitamin D (Oyster Shell Calcium/Vitamin D 500 Mg-200 Iu) 1 tab PO DAILY [facility] Last Admin: 06/23/17 08:13 Dose: 1 tab Celecoxib (Celebrex) 100 mg PO Q12 [facility] Last Admin: 06/23/17 21:02 Dose: 100 mg Docusate Sodium (Colace) 100 mg PO TID [facility] Last Admin: 06/23/17 17:17 Dose: 100 mg Gabapentin (Neurontin) 600 mg PO TID [facility] Last Admin: 06/23/17 17:17 Dose: 600 mg Oxycodone HCl (Oxycontin Extended Release Tab) 10 mg PO Q12 [facility] Stop: 06/24/17 21:01 Last Admin: 06/23/17 21:02 Dose: 10 mg Oxycodone/Acetaminophen (Percocet 5/325 Mg Tab) 1 tab PO Q4 PRN PRN Reason: pain, 4-7 Stop: 06/24/17 15:17 Last Admin: 06/22/17 06:29 Dose: 1 tab Timolol Maleate (Timoptic 0.25% [facility] Soln) 1 drop OU DAILY [facility] Last Admin: 06/23/17 08:14 Dose: 1 drop
[2017-06-24] MEDS: Oxycodone/Acetaminophen 5/325 mg Tab PO PRN ×3 (01:27→18:57)
[2017-06-24] MEDS: Calcium-Vit D 500 mg-200 Units Tab UD PO SCH (08:19)
[2017-06-24] MEDS: Timolol 0.25% Ophth SOLN OU SCH (08:19)
[2017-06-24] MEDS: oxyCODONE 10 mg ER Tab (oxyCONTIN) PO SCH ×2 (08:26→21:02)
--- NOTE | 2017-06-24 09:56 | CP.PCM.PN ---
Subjective - Date & Time of Evaluation Date of Evaluation: 06/23/17 Time of Evaluation: 17:00 - Subjective Subjective: no acute complaints at present, Objective - Vital Signs/Intake and Output Vital Signs (last 24 hours): Temp Pulse Resp BP Pulse Ox 98.1 F 83 20 147/67 88 L 06/24/17 08:17 06/24/17 08:17 06/24/17 08:17 06/24/17 08:17 06/24/17 08:17 - Medications Medications: Current Medications Acetaminophen (Tylenol 325mg Tab) 325 mg PO Q4 PRN PRN Reason: pain1-3 Aspirin (Aspirin) 325 mg PO BID [facility] Last Admin: 06/24/17 08:32 Dose: 325 mg Atorvastatin Calcium (Lipitor) 10 mg PO DAILY [facility] Last Admin: 06/24/17 08:19 Dose: 10 mg Calcium/Vitamin D (Oyster Shell Calcium/Vitamin D 500 Mg-200 Iu) 1 tab PO DAILY [facility] Last Admin: 06/24/17 08:19 Dose: 1 tab Celecoxib (Celebrex) 100 mg PO Q12 [facility] Last Admin: 06/24/17 08:19 Dose: 100 mg Docusate Sodium (Colace) 100 mg PO TID [facility] Last Admin: 06/24/17 08:19 Dose: 100 mg Gabapentin (Neurontin) 600 mg PO TID [facility] Last Admin: 06/24/17 08:21 Dose: 600 mg Lactulose (Enulose) 20 gm PO DAILY PRN PRN Reason: Constipation Oxycodone HCl (Oxycontin Extended Release Tab) 10 mg PO Q12 [facility] Stop: 06/24/17 21:01 Last Admin: 06/24/17 08:26 Dose: 10 mg Oxycodone/Acetaminophen (Percocet 5/325 Mg Tab) 1 tab PO Q4 PRN PRN Reason: pain, 4-7 Stop: 06/24/17 15:17 Last Admin: 06/24/17 01:27 Dose: 1 tab Timolol Maleate (Timoptic 0.25% Ophth Soln) 1 drop OU DAILY [facility] Last Admin: 06/24/17 08:19 Dose: 1 drop - Head Exam Head Exam: ATRAUMATIC, NORMAL INSPECTION, NORMOCEPHALIC - Eye Exam Eye Exam: EOMI, Normal appearance Pupil Exam: NORMAL ACCOMODATION, PERRL - ENT Exam ENT Exam: Mucous Membranes Moist, Normal Exam - Neck Exam Neck Exam: Full ROM, Normal Inspection - Respiratory Exam Respiratory Exam: Clear to Ausculation Bilateral, NORMAL BREATHING PATTERN - Cardiovascular Exam Cardiovascular Exam: REGULAR RHYTHM - GI/Abdominal Exam GI & Abdominal Exam: Normal Bowel Sounds - Rectal Exam Rectal Exam: NORMAL INSPECTION - Exam External exam: NORMAL EXTERNAL EXAM - Extremities Exam Extremities Exam: Full ROM, Normal Capillary Refill, Normal Inspection - Back Exam Back Exam: NORMAL INSPECTION - Neurological Exam Neurological Exam: Alert, Awake Neuro motor strength exam: Left Upper Extremity: 3, Right Upper Extremity: 3, Left Lower Extremity: 3, Right Lower Extremity: 3 - Psychiatric Exam Psychiatric exam: Normal Affect, Normal Mood - Skin Skin Exam: Dry, Normal Color Assessment and Plan (1) Dizziness Status: Acute (2) Status post left knee replacement Assessment & Plan: plan for quadriceps strenghtening, transfers and gait training monitor range of motion of the knee and pain meds Status: Acute
[2017-06-25] MEDS: Oxycodone/Acetaminophen 5/325 mg Tab PO PRN ×4 (02:59→23:21)
[2017-06-25] MEDS: Timolol 0.25% Ophth SOLN OU SCH (08:10)
[2017-06-25] MEDS: Calcium-Vit D 500 mg-200 Units Tab UD PO SCH (08:10)
[2017-06-25] MEDS: oxyCODONE 10 mg ER Tab (oxyCONTIN) PO SCH ×2 (09:16→21:13)
[2017-06-26] MEDS: Timolol 0.25% Ophth SOLN OU SCH (08:15)
[2017-06-26] MEDS: Calcium-Vit D 500 mg-200 Units Tab UD PO SCH (08:15)
[2017-06-26] MEDS: oxyCODONE 10 mg ER Tab (oxyCONTIN) PO SCH ×2 (08:15→21:42)
[2017-06-26] MEDS: Oxycodone/Acetaminophen 5/325 mg Tab PO PRN ×2 (11:31→16:38)
--- NOTE | 2017-06-26 13:40 | CP.PCM.PN ---
Subjective - Date & Time of Evaluation Date of Evaluation: 06/26/17 Time of Evaluation: 11:30 - Subjective Subjective: no acute knee pain Objective - Vital Signs/Intake and Output Vital Signs (last 24 hours): Temp Pulse Resp BP Pulse Ox 98.6 F 77 20 136/56 L 100 06/26/17 08:08 06/26/17 08:08 06/26/17 08:08 06/26/17 08:08 06/26/17 08:08 - Medications Medications: Current Medications Acetaminophen (Tylenol 325mg Tab) 325 mg PO Q4 PRN PRN Reason: pain1-3 Aspirin (Aspirin) 325 mg PO BID [facility] Last Admin: 06/26/17 08:13 Dose: 325 mg Atorvastatin Calcium (Lipitor) 10 mg PO DAILY@2100 [facility] Calcium/Vitamin D (Oyster Shell Calcium/Vitamin D 500 Mg-200 Iu) 1 tab PO DAILY [facility] Last Admin: 06/26/17 08:15 Dose: 1 tab Celecoxib (Celebrex) 100 mg PO Q12 [facility] Last Admin: 06/26/17 08:13 Dose: 100 mg Docusate Sodium (Colace) 100 mg PO TID [facility] Last Admin: 06/26/17 12:18 Dose: 100 mg Gabapentin (Neurontin) 600 mg PO TID [facility] Last Admin: 06/26/17 12:18 Dose: 600 mg Lactulose (Enulose) 20 gm PO DAILY PRN PRN Reason: Constipation Oxycodone HCl (Oxycontin Extended Release Tab) 10 mg PO Q12 [facility] Stop: 06/28/17 09:01 Last Admin: 06/26/17 08:15 Dose: 10 mg Oxycodone/Acetaminophen (Percocet 5/325 Mg Tab) 1 tab PO Q4 PRN PRN Reason: Pain, moderate (4-7) Stop: 06/27/17 18:30 Last Admin: 06/26/17 11:31 Dose: 1 tab Timolol Maleate (Timoptic 0.25% Ophth Soln) 1 drop OU DAILY [facility] Last Admin: 06/26/17 08:15 Dose: 1 drop - Head Exam Head Exam: ATRAUMATIC, NORMAL INSPECTION, NORMOCEPHALIC - Eye Exam Eye Exam: EOMI, Normal appearance, PERRL Pupil Exam: NORMAL ACCOMODATION - ENT Exam ENT Exam: Mucous Membranes Moist, Normal Exam - Neck Exam Neck Exam: Normal Inspection - Respiratory Exam Respiratory Exam: NORMAL BREATHING PATTERN - Cardiovascular Exam Cardiovascular Exam: REGULAR RHYTHM - GI/Abdominal Exam GI & Abdominal Exam: Soft, Normal Bowel Sounds - Rectal Exam Rectal Exam: NORMAL INSPECTION - Exam External exam: NORMAL EXTERNAL EXAM - Extremities Exam Extremities Exam: Full ROM, Normal Capillary Refill, Normal Inspection - Back Exam Back Exam: NORMAL INSPECTION - Neurological Exam Neurological Exam: Alert, Awake Neuro motor strength exam: Left Upper Extremity: 4, Right Upper Extremity: 4, Left Lower Extremity: 3, Right Lower Extremity: 4 - Psychiatric Exam Psychiatric exam: Normal Affect, Normal Mood - Skin Skin Exam: Dry, Intact Assessment and Plan (1) Dizziness Status: Acute (2) Status post left knee replacement Assessment & Plan: plan for physical, occupational therapy Status: Acute
[2017-06-27] MEDS: Oxycodone/Acetaminophen 5/325 mg Tab PO PRN ×2 (06:08→18:57)
[2017-06-27] MEDS: oxyCODONE 10 mg ER Tab (oxyCONTIN) PO SCH ×2 (08:42→21:30)
[2017-06-27] MEDS: Calcium-Vit D 500 mg-200 Units Tab UD PO SCH (08:44)
[2017-06-27] MEDS: Timolol 0.25% Ophth SOLN OU SCH (08:45)
--- NOTE | 2017-06-27 13:53 | CP.PCM.PN ---
Subjective - Date & Time of Evaluation Date of Evaluation: 06/27/17 Time of Evaluation: 12:30 - Subjective Subjective: no acute complaints at present Objective - Vital Signs/Intake and Output Vital Signs (last 24 hours): Temp Pulse Resp BP Pulse Ox 97.8 F 63 20 132/56 L 99 06/27/17 08:11 06/27/17 08:11 06/27/17 08:11 06/27/17 08:11 06/27/17 08:11 - Medications Medications: Current Medications Acetaminophen (Tylenol 325mg Tab) 325 mg PO Q4 PRN PRN Reason: pain1-3 Aspirin (Aspirin) 325 mg PO BID [facility] Last Admin: 06/27/17 08:44 Dose: 325 mg Atorvastatin Calcium (Lipitor) 10 mg PO DAILY@2100 [facility] Last Admin: 06/26/17 21:42 Dose: 10 mg Calcium/Vitamin D (Oyster Shell Calcium/Vitamin D 500 Mg-200 Iu) 1 tab PO DAILY [facility] Last Admin: 06/27/17 08:44 Dose: 1 tab Celecoxib (Celebrex) 100 mg PO Q12 [facility] Last Admin: 06/27/17 08:44 Dose: 100 mg Cyclobenzaprine HCl (Flexeril) 5 mg PO HS [facility] Last Admin: 06/26/17 21:43 Dose: 5 mg Docusate Sodium (Colace) 100 mg PO TID [facility] Last Admin: 06/27/17 12:38 Dose: Not Given Gabapentin (Neurontin) 600 mg PO TID [facility] Last Admin: 06/27/17 12:37 Dose: 600 mg Lactulose (Enulose) 20 gm PO DAILY PRN PRN Reason: Constipation Last Admin: 06/26/17 18:15 Dose: 20 gm Oxycodone HCl (Oxycontin Extended Release Tab) 10 mg PO Q12 [facility] Stop: 06/28/17 09:01 Last Admin: 06/27/17 08:42 Dose: 10 mg Oxycodone/Acetaminophen (Percocet 5/325 Mg Tab) 1 tab PO Q4 PRN PRN Reason: Pain, moderate (4-7) Stop: 06/27/17 18:30 Last Admin: 06/27/17 06:08 Dose: 1 tab Timolol Maleate (Timoptic 0.25% Ophth Soln) 1 drop OU DAILY [facility] Last Admin: 06/27/17 08:45 Dose: 1 drop - Head Exam Head Exam: ATRAUMATIC, NORMAL INSPECTION, NORMOCEPHALIC - Eye Exam Eye Exam: EOMI, Normal appearance, PERRL Pupil Exam: NORMAL ACCOMODATION - ENT Exam ENT Exam: Mucous Membranes Moist, Normal Exam - Neck Exam Neck Exam: Normal Inspection - Respiratory Exam Respiratory Exam: NORMAL BREATHING PATTERN - Cardiovascular Exam Cardiovascular Exam: REGULAR RHYTHM - GI/Abdominal Exam GI & Abdominal Exam: Soft, Normal Bowel Sounds - Rectal Exam Rectal Exam: NORMAL INSPECTION - Exam External exam: NORMAL EXTERNAL EXAM - Extremities Exam Extremities Exam: Full ROM, Normal Capillary Refill - Back Exam Back Exam: NORMAL INSPECTION - Neurological Exam Neurological Exam: Alert, Awake Neuro motor strength exam: Left Upper Extremity: 4, Right Upper Extremity: 4, Left Lower Extremity: 3, Right Lower Extremity: 4 - Psychiatric Exam Psychiatric exam: Normal Affect, Normal Mood - Skin Skin Exam: Dry, Intact Assessment and Plan (1) Dizziness Status: Acute (2) Status post left knee replacement Assessment & Plan: plan for physical, occupational therapy program Status: Acute
[2017-06-28] MEDS: Oxycodone/Acetaminophen 5/325 mg Tab PO PRN (05:23)
[2017-06-28] MEDS: Timolol 0.25% Ophth SOLN OU SCH (08:41)
[2017-06-28] MEDS: oxyCODONE 10 mg ER Tab (oxyCONTIN) PO SCH ×2 (08:42→21:21)
[2017-06-28] MEDS: Calcium-Vit D 500 mg-200 Units Tab UD PO SCH (08:42)
[2017-06-29] MEDS: Oxycodone/Acetaminophen 5/325 mg Tab PO PRN ×2 (00:23→23:39)
[2017-06-29] MEDS: Calcium-Vit D 500 mg-200 Units Tab UD PO SCH (08:31)
[2017-06-29] MEDS: Timolol 0.25% Ophth SOLN OU SCH (08:31)
[2017-06-29] MEDS: oxyCODONE 10 mg ER Tab (oxyCONTIN) PO SCH ×2 (08:35→21:39)
--- NOTE | 2017-06-29 12:09 | CP.PCM.PN ---
Subjective - Date & Time of Evaluation Date of Evaluation: 06/29/17 Time of Evaluation: 10:00 - Subjective Subjective: no acute complaints at present Objective - Vital Signs/Intake and Output Vital Signs (last 24 hours): Temp Pulse Resp BP Pulse Ox 97.7 F 80 20 144/43 L 90 L 06/29/17 08:58 06/29/17 08:58 06/29/17 08:58 06/29/17 08:58 06/29/17 08:58 - Medications Medications: Current Medications Acetaminophen (Tylenol 325mg Tab) 325 mg PO Q4 PRN PRN Reason: pain1-3 Aspirin (Aspirin) 325 mg PO BID [facility] Last Admin: 06/29/17 08:32 Dose: 325 mg Atorvastatin Calcium (Lipitor) 10 mg PO DAILY@2100 [facility] Last Admin: 06/28/17 21:20 Dose: 10 mg Calcium/Vitamin D (Oyster Shell Calcium/Vitamin D 500 Mg-200 Iu) 1 tab PO DAILY [facility] Last Admin: 06/29/17 08:31 Dose: 1 tab Celecoxib (Celebrex) 100 mg PO Q12 [facility] Last Admin: 06/29/17 08:32 Dose: 100 mg Cyclobenzaprine HCl (Flexeril) 5 mg PO HS [facility] Last Admin: 06/28/17 21:20 Dose: 5 mg Docusate Sodium (Colace) 100 mg PO TID [facility] Last Admin: 06/29/17 08:31 Dose: 100 mg Gabapentin (Neurontin) 600 mg PO TID [facility] Last Admin: 06/29/17 08:31 Dose: 600 mg Lactulose (Enulose) 20 gm PO DAILY PRN PRN Reason: Constipation Last Admin: 06/28/17 21:21 Dose: 20 gm Oxycodone HCl (Oxycontin Extended Release Tab) 10 mg PO Q12 [facility] Stop: 07/01/17 21:01 Last Admin: 06/29/17 08:35 Dose: 10 mg Oxycodone/Acetaminophen (Percocet 5/325 Mg Tab) 1 tab PO Q4 PRN PRN Reason: for pain level 4-7 Stop: 06/30/17 18:48 Last Admin: 06/29/17 00:23 Dose: 1 tab Timolol Maleate (Timoptic 0.25% Ophth Soln) 1 drop OU DAILY [facility] Last Admin: 04/13/18 08:31 Dose: 1 drop - Head Exam Head Exam: ATRAUMATIC, NORMAL INSPECTION, NORMOCEPHALIC - Eye Exam Eye Exam: EOMI, Normal appearance, PERRL Pupil Exam: NORMAL ACCOMODATION - ENT Exam ENT Exam: Mucous Membranes Moist, Normal Exam - Neck Exam Neck Exam: Full ROM, Normal Inspection - Respiratory Exam Respiratory Exam: NORMAL BREATHING PATTERN - Cardiovascular Exam Cardiovascular Exam: REGULAR RHYTHM - GI/Abdominal Exam GI & Abdominal Exam: Soft, Normal Bowel Sounds - Rectal Exam Rectal Exam: NORMAL INSPECTION - Exam External exam: NORMAL EXTERNAL EXAM - Extremities Exam Extremities Exam: Full ROM, Normal Capillary Refill, Normal Inspection - Back Exam Back Exam: NORMAL INSPECTION - Neurological Exam Neurological Exam: Alert, Awake Neuro motor strength exam: Left Upper Extremity: 4, Right Upper Extremity: 4, Left Lower Extremity: 3, Right Lower Extremity: 4 - Psychiatric Exam Psychiatric exam: Normal Affect, Normal Mood Assessment and Plan (1) Dizziness Status: Acute (2) Status post left knee replacement Assessment & Plan: quad strengthening , range of motion, strenghtening transfers and gait training Status: Acute
--- NOTE | 2017-06-29 23:04 | CP.PCM.PN ---
Subjective - Date & Time of Evaluation Date of Evaluation: 06/29/17 Time of Evaluation: 11:10 - Subjective Subjective: 71 y/o woman w/ pmh of HTN, neuropathy, Breast CA with mastectomy and L lymph edema, and HLD is admitted to TCU for continuation of physical therapy s/p left total knee replacement. The patient is in room with at bedside and has no complaints other than some mild pain s/p surgery. The patient denies headaches, chest pain, SOB, abdominal pain, nausea, vomiting, diarrhea, or fever. Objective - Vital Signs/Intake and Output Vital Signs (last 24 hours): Temp Pulse Resp BP Pulse Ox 97.9 F 88 20 120/61 90 L 06/29/17 16:30 06/29/17 16:30 06/29/17 16:30 06/29/17 16:30 06/29/17 16:30 - Medications Medications: Current Medications Acetaminophen (Tylenol 325mg Tab) 325 mg PO Q4 PRN PRN Reason: pain1-3 Aspirin (Aspirin) 325 mg PO BID [facility] Last Admin: 06/29/17 18:15 Dose: 325 mg Atorvastatin Calcium (Lipitor) 10 mg PO DAILY@2100 [facility] Last Admin: 06/29/17 21:41 Dose: 10 mg Calcium/Vitamin D (Oyster Shell Calcium/Vitamin D 500 Mg-200 Iu) 1 tab PO DAILY [facility] Last Admin: 06/29/17 08:31 Dose: 1 tab Celecoxib (Celebrex) 100 mg PO Q12 [facility] Last Admin: 06/29/17 21:40 Dose: 100 mg Cyclobenzaprine HCl (Flexeril) 5 mg PO HS [facility] Last Admin: 06/29/17 21:40 Dose: 5 mg Docusate Sodium (Colace) 100 mg PO TID [facility] Last Admin: 06/29/17 18:15 Dose: 100 mg Gabapentin (Neurontin) 600 mg PO TID [facility] Last Admin: 06/29/17 18:15 Dose: 600 mg Lactulose (Enulose) 20 gm PO DAILY PRN PRN Reason: Constipation Last Admin: 06/28/17 21:21 Dose: 20 gm Oxycodone HCl (Oxycontin Extended Release Tab) 10 mg PO Q12 [facility] Stop: 07/01/17 21:01 Last Admin: 06/29/17 21:39 Dose: 10 mg Oxycodone/Acetaminophen (Percocet 5/325 Mg Tab) 1 tab PO Q4 PRN PRN Reason: for pain level 4-7 Stop: 06/30/17 18:48 Last Admin: 06/29/17 00:23 Dose: 1 tab Timolol Maleate (Timoptic 0.25% Ophth Soln) 1 drop OU DAILY [facility] Last Admin: 06/29/17 08:31 Dose: 1 drop - Constitutional Appears: Well, Non-toxic, No Acute Distress - Head Exam Head Exam: ATRAUMATIC, NORMAL INSPECTION - Eye Exam Eye Exam: EOMI, Normal appearance Pupil Exam: NORMAL ACCOMODATION - ENT Exam ENT Exam: Mucous Membranes Moist, Normal Exam - Neck Exam Neck Exam: Full ROM, Normal Inspection - Cardiovascular Exam Cardiovascular Exam: REGULAR RHYTHM - GI/Abdominal Exam GI & Abdominal Exam: Soft, Normal Bowel Sounds - Extremities Exam Extremities Exam: Full ROM, Normal Capillary Refill, Normal Inspection. absent : Calf Tenderness, Joint Swelling, Pedal Edema Additional comments: L knee with splint and drainage suction, no fluid in bag, mild discomfort L knee - Neurological Exam Neurological Exam: Alert, Awake, Oriented x3 - Psychiatric Exam Psychiatric exam: Normal Affect, Normal Mood - Skin Skin Exam: Dry, Normal Color, Warm Assessment and Plan - Assessment and Plan (Free Text) Assessment: 72 y/o female s/p L TKR -doing well, continue therapy and medical management.
[2017-06-30 08:13] VITALS: BP 119/52; PULSE 77; TEMP 97.7; O2SAT 96
[2017-06-30] MEDS: Calcium-Vit D 500 mg-200 Units Tab UD PO SCH (08:22)
[2017-06-30] MEDS: Timolol 0.25% Ophth SOLN OU SCH (08:23)
[2017-06-30] MEDS: oxyCODONE 10 mg ER Tab (oxyCONTIN) PO SCH (08:25)
--- NOTE | 2017-06-30 10:43 | CP.PCM.DIS ---
Provider - Provider Date of Admission: 06/21/17 14:28 Attending physician: Tom Vinson MD Primary care physician: Tom Vinson MD Time Spent in preparation of Discharge (in minutes): 30 Diagnosis - Discharge Diagnosis (1) Status post left knee replacement Status: Acute Hospital Course - Lab Results Lab Results: no new lab result - Hospital Course Hospital Course: Pt had a L TKR, doing very well with rehab, no further complication, she is to discharge to home and continue out pt PT - Date & Time of H&P Date of H&P: 06/28/17 Discharge Exam - Head Exam Head Exam: ATRAUMATIC, NORMAL INSPECTION - Eye Exam Eye Exam: Normal appearance Pupil Exam: NORMAL ACCOMODATION - Respiratory Exam Respiratory Exam: Clear to PA & Lateral - Cardiovascular Exam Cardiovascular Exam: REGULAR RHYTHM - GI/Abdominal Exam GI & Abdominal Exam: Normal Bowel Sounds, Unremarkable - Extremities Exam Extremities exam: full ROM, normal capillary refill, pedal pulses present Additional comments: LLE in knee immobilizer, no sign of infection at site, LUE lymph edema - Back Exam Back exam: NORMAL INSPECTION - Neurological Exam Neurological exam: Alert, Normal Gait, Oriented x3 - Psychiatric Exam Psychiatric exam: Normal Affect - Skin Skin Exam: Intact, Normal Color Discharge Plan - Follow Up Plan Condition: GOOD Disposition: HOME/ ROUTINE Referrals: Tom Vinson MD [Primary Care Provider] -
== END 2017-06-30 13:30 | disposition home or self-care (01) | DRG 561 ==
LOC: H.TCU 14:28
PROVIDERS: ADMIT Family Medicine; ATTEND Family Medicine
PROC: F07Z9FZ Gait Training/Functional Ambulation Treatment using Assistive, Adaptive, Supportive or Protective Equipment (ICD-10-PCS; principal; 2017-06-21)
PROC: F08Z1ZZ Dressing Techniques Treatment (ICD-10-PCS; 2017-06-21)
PROC: F08Z0ZZ Bathing/Showering Techniques Treatment (ICD-10-PCS; 2017-06-21)
PROC: F08Z4FZ Home Management Treatment using Assistive, Adaptive, Supportive or Protective Equipment (ICD-10-PCS; 2017-06-21)
PROC: F07M6FZ Therapeutic Exercise Treatment of Musculoskeletal System - Whole Body using Assistive, Adaptive, Supportive or Protective Equipment (ICD-10-PCS; 2017-06-21)
DX: Z47.1 Aftercare following joint replacement surgery (principal); Z96.652 Presence of left artificial knee joint; G62.9 Polyneuropathy, unspecified; Z85.3 Personal history of malignant neoplasm of breast; M19.90 Unspecified osteoarthritis, unspecified site; R42 Dizziness and giddiness; E78.5 Hyperlipidemia, unspecified; I10 Essential (primary) hypertension; Z87.891 Personal history of nicotine dependence; Z90.49 Acquired absence of other specified parts of digestive tract; Z91.81 History of falling